=== PATIENT | male | born 1980 | race African-American/Black ===

== ENCOUNTER 2020-06-05 22:12 | Emergency (ER) | payer OTHER ==
[~2020-06-05] VITALS: Ht 177.8 cm; Wt 81.8 kg
[2020-06-06] MEDS ORDERED: ONDANSETRON HCL 4 MG/2 ML VIAL IVP ONE
[2020-06-06] MEDS ORDERED: SODIUM CHLORIDE 0.9% 1,000 ML IV ONE
[2020-06-06] MEDS ORDERED: ACETAMINOPHEN 500 MG TABLET PO ONE
[2020-06-06 00:32] LABS: COVID AG,FIA SOURCE NASOPHARYNGEAL
[2020-06-06 00:35] LABS: BASOPHILS % (AUTO) 0.4 % (0.0-2.0); EOSINOPHILS % (AUTO) 0.2 % (1.0-6.0); HEMATOCRIT 44.4 % (41-53); LYMPHOCYTES # (AUTO) 1.6 K/uL (1.0-4.8); LYMPHOCYTES % (AUTO) 19.5 % (22.0-44.0); MEAN CORPUSCULAR HEMOGLOBIN 29.4 pg (26.0-34.0); MEAN CORPUSCULAR HGB CONC 33.8 G/dL (31.0-37.0); MEAN CORPUSCULAR VOLUME 87 fL (80-100); MONOCYTES # (AUTO) 1.1 K/uL (0.1-1.0); MONOCYTES % (AUTO) 13.3 % (2.0-9.0); NEUTROPHILS # (AUTO) 5.4 K/uL (1.8-7.7); NEUTROPHILS % (AUTO) 66.6 % (40.0-70.0); PLATELET COUNT (AUTO) 302 K/uL (150-450); RED BLOOD CELL COUNT(AUTO) 5.11 MIL/uL (4.50-5.90); RED CELL DISTRIBUTION WIDTH 13.8 % (11.5-14.5)
[2020-06-06 00:50] LABS: ANION GAP 13 mmol/L (8-16); CARBON DIOXIDE 27 mmol/L (22-29); CHLORIDE 101 mmol/L (98-107); CREATININE 1.31 mg/dL (0.60-1.30); GLUCOSE,RANDOM 109 mg/dL (70-110); POTASSIUM 3.4 mmol/L (3.5-5.1); SODIUM SERUM 141 mmol/L (136-145); UREA NITROGEN, BLOOD 13 mg/dL (7-18)
[2020-06-06 00:51] LABS: GLOMERULAR FILTR. RATE CALC > 60 mL/min (>60)
[2020-06-06 00:57] LABS: ALANINE AMINOTRANSFERASE 20 U/L (12-78); ALBUMIN 4.3 g/dL (3.4-5.0); ALKALINE PHOSPHATASE 104 U/L (46-116); ASPARTATE AMINOTRANSFERASE 18 U/L (15-37); BILIRUBIN,TOTAL 0.5 mg/dL (0.1-1.0); TOTAL PROTEIN, SERUM 8.6 g/dL (6.4-8.2)
[2020-06-06 01:39] VITALS: BP 132/80
== END 2020-06-06 01:40 | disposition home or self-care (01) ==
LOC: EMS 22:12
DX: U07.1 COVID-19 (principal)
CPT/HCPCS: 71045; 80053; 85025; 87426; 96361; 96374; 99284; J2405; U0003

== ENCOUNTER 2020-10-09 06:20 | Emergency (ER) | payer OTHER ==
[~2020-10-09] VITALS: Ht 177.8 cm; Wt 88.6 kg
[2020-10-09] MEDS: ACETAMINOPHEN 500 MG TABLET PO ONE (06:55)
[2020-10-09 08:48] VITALS: BP 128/89
== END 2020-10-09 08:50 | disposition home or self-care (01) ==
LOC: EMS 06:21
DX: G89.29 Other chronic pain (principal); H92.01 Otalgia, right ear
CPT/HCPCS: 81002; 99282; 99283

== ENCOUNTER 2020-10-21 16:29 | Emergency (ER) | payer OTHER ==
[~2020-10-21] VITALS: Ht 175.3 cm; Wt 77.3 kg
[2020-10-21] MEDS ORDERED: CETI-450 PO (16:44)
[2020-10-21] MEDS ORDERED: UBRO50TA PO (16:44)
[2020-10-21] MEDS ORDERED: ATOR20TA86 PO (16:44)
[2020-10-21] MEDS ORDERED: KETO5DRO6 OU (16:44)
[2020-10-21] MEDS ORDERED: TOPI25 PO (16:44)
[2020-10-21] MEDS ORDERED: FLUT16H NASAL (16:44)
[2020-10-21] MEDS ORDERED: MONT-35 PO (16:44)
[2020-10-21 18:05] LABS: APPEARANCE,URINE CLOUDY (CLEAR); BILIRUBIN,URINE NEGATIVE (NEGATIVE); GLUCOSE, URINE (UA) NEGATIVE (NEGATIVE); KETONES,URINE NEGATIVE (NEGATIVE); LEUKOCYTE ESTERASE ,URINE NEGATIVE (NEGATIVE); NITRATE,URINE NEGATIVE (NEGATIVE); OCCULT BLOOD,URINE NEGATIVE (NEGATIVE); PROTEIN,URINE NEGATIVE (NEGATIVE)
[2020-10-21 18:12] LABS: AMORPHOUS SEDIMENT,UR Many /LPF (None Seen); BACTERIA,URINE None Seen /HPF (None Seen); RBC,URINE 0-2 /HPF (0-2); SQUAMOUS EPITHELIAL CELL,UR Rare /LPF (None Seen); WBC,URINE 0-2 /HPF (0-5)
[2020-10-21 20:10] LABS: BASOPHILS % (AUTO) 0.5 % (0.0-2.0); EOSINOPHILS % (AUTO) 1.5 % (1.0-6.0); HEMATOCRIT 45.2 % (41-53); HEMOGLOBIN 15.2 g/dL (13.5-17.5); LYMPHOCYTES # (AUTO) 3.9 K/uL (1.0-4.8); LYMPHOCYTES % (AUTO) 45.7 % (22.0-44.0); MEAN CORPUSCULAR HEMOGLOBIN 29.8 pg (26.0-34.0); MEAN CORPUSCULAR HGB CONC 33.5 G/dL (31.0-37.0); MEAN CORPUSCULAR VOLUME 89 fL (80-100); MONOCYTES # (AUTO) 0.6 K/uL (0.1-1.0); NEUTROPHILS # (AUTO) 3.9 K/uL (1.8-7.7); NEUTROPHILS % (AUTO) 45.3 % (40.0-70.0); PLATELET COUNT (AUTO) 461 K/uL (150-450); RED BLOOD CELL COUNT(AUTO) 5.09 MIL/uL (4.50-5.90); RED CELL DISTRIBUTION WIDTH 13.9 % (11.5-14.5)
[2020-10-21 20:17] LABS: ANION GAP 4 mmol/L (8-16); CALCIUM, TOTAL 8.7 mg/dL (8.8-10.5); CARBON DIOXIDE 26 mmol/L (22-29); CHLORIDE 108 mmol/L (98-107); CREATININE 1.18 mg/dL (0.60-1.30); GLOMERULAR FILTR. RATE CALC > 60 mL/min (>60); GLUCOSE,RANDOM 94 mg/dL (70-110); POTASSIUM 4.4 mmol/L (3.5-5.1); SODIUM SERUM 138 mmol/L (136-145); UREA NITROGEN, BLOOD 11 mg/dL (7-18)
[2020-10-21 20:59] VITALS: BP 137/93
== END 2020-10-21 21:03 | disposition home or self-care (01) ==
LOC: EMS 16:29
DX: R30.0 Dysuria (principal); M25.561 Pain in right knee; R10.9 Unspecified abdominal pain; G43.909 Migraine, unspecified, not intractable, without status migrainosus; E78.00 Pure hypercholesterolemia, unspecified
CPT/HCPCS: 80048; 81001; 85025; 87491; 87591; 99283